=== PATIENT | male | born 1970 | race African-American/Black ===

== ENCOUNTER 2021-03-16 14:39 | Inpatient (IN) | payer MEDICAID, OTHER ==
[~2021-03-16] VITALS: Ht 172.7 cm; Wt 126.1 kg
[2021-03-16] MEDS ORDERED: InsuLIN R (HUMAN) 100 UNITS in SODIUM CHL 0.9% 99 ML IV SCH (14:45)
[2021-03-16] MEDS ORDERED: INSULIN LANTUS (GLARGINE) 1 /0.01ml (100units/ml) SC ONE (14:45)
[2021-03-16] MEDS ORDERED: DEXTROSE (50%) 50ML SYRG IV PRN ×2 (14:45→21:00)
[2021-03-16] MEDS: ACCU-CHEK COMFORT CURVE STRIP VI SCH ×3 (16:30→18:30)
[2021-03-16 16:50] LABS: Basophils # (auto) 0.1 10 ^3/uL (0-0.2); Basophils % (auto) 0.8 % (0.0-2.0); Eosinophils # (auto) 0.2 10 ^3/uL (0-0.8); Eosinophils % (auto) 1.7 % (0.0-7.0); Hematocrit 32.2 % (41.0-53.0); Hemoglobin 10.8 g/dL (13.5-17.5); Lymphocytes # (auto) 3.8 10 ^3/uL (0.4-5.4); Mean Corpuscular Hemoglobin 32.8 pg (28.0-32.0); Mean Corpuscular Hgb Conc. 33.4 g/dL (32.0-36.0); Mean Corpuscular Volume 98.2 fL (80.0-100.0); Monocytes # (auto) 1.3 10 ^3/uL (0-1.3); Monocytes % (auto) 12.3 % (0.0-12.0); Neutrophils % (auto) 48.2 % (37.0-80.0); Platelet Count (auto) 278 10^3/uL (140-450); Red Blood Cells 3.28 10^6/uL (4.5-5.90); Red Cell Distribution Width 13.4 % (11.8-14.3); White Blood Cell 10.3 10^3/uL (4.4-10.8)
[2021-03-16 16:59] LABS: BUN/Creatinine Ratio 9.4; Calcium 8.4 mg/dL (8.5-10.1); Magnesium 3.4 mg/dL (1.6-2.6); Phosphorus 6.4 mg/dL (2.5-4.90); Potassium 4.5 mmol/L (3.5-5.1)
[2021-03-16] MEDS: SODIUM CHLORIDE 0.9% 1,000 ML IV SCH ×2 (18:28→18:29)
[2021-03-16] MEDS ORDERED: SODIUM CHLORIDE 0.9% 1,000 ML IV SCH ×2 (18:45→20:45)
[2021-03-16] MEDS ORDERED: NITROGLYCERIN 0.4 MG SL TAB SL PRN (21:00)
[2021-03-16] MEDS ORDERED: ONDANSETRON HCL 4 MG/2 ML VIAL IV PRN (21:00)
[2021-03-16] MEDS ORDERED: MORPHINE SULF INJ 2 MG/ML SYRINGE 1ML IV PRN ×2 (21:00)
[2021-03-16 21:13] LABS: BUN/Creatinine Ratio 10.1; Calcium 8.2 mg/dL (8.5-10.1); Potassium 4.7 mmol/L (3.5-5.1)
[2021-03-16] MEDS: HEPARIN SODIUM (PORCINE) 5000 UNITS/ML 1ML VIAL SC SCH (22:48)
[2021-03-16 23:47] LABS: Urine Bacteria FEW /hpf (None Seen); Urine Blood 1+ /uL (Negative); Urine Specific Gravity 1.012 (1.001-1.035); Urine WBC <1 /hpf (0 - 3)
[2021-03-17] MEDS: InsuLIN REG 1unit/0.01ml Soln (100units/ml) SC SCH ×5 (00:10→23:40)
[2021-03-17] MEDS: ACCU-CHEK COMFORT CURVE STRIP VI SCH ×5 (00:12→23:39)
[2021-03-17] MEDS: hydrALAZINE HCL 20 MG/ML VL IV PRN ×3 (00:20→19:49)
[2021-03-17] MEDS: HEPARIN SODIUM (PORCINE) 5000 UNITS/ML 1ML VIAL SC SCH ×3 (06:00→23:41)
[2021-03-17 06:44] LABS: Basophils # (auto) 0.1 10 ^3/uL (0-0.2); Basophils % (auto) 0.6 % (0.0-2.0); Eosinophils # (auto) 0.2 10 ^3/uL (0-0.8); Hematocrit 34.7 % (41.0-53.0); Hemoglobin 11.4 g/dL (13.5-17.5); Lymphocytes # (auto) 3.3 10 ^3/uL (0.4-5.4); Lymphocytes % (auto) 33.6 % (10.0-50.0); Mean Corpuscular Hemoglobin 32.1 pg (28.0-32.0); Mean Corpuscular Hgb Conc. 32.8 g/dL (32.0-36.0); Mean Corpuscular Volume 97.9 fL (80.0-100.0); Monocytes # (auto) 0.6 10 ^3/uL (0-1.3); Monocytes % (auto) 5.7 % (0.0-12.0); Neutrophils # (auto) 5.6 10 ^3/uL (1.6-8.6); Neutrophils % (auto) 58.1 % (37.0-80.0); Nucleated Red Blood Cells % 0.1 %; Platelet Count (auto) 260 10^3/uL (140-450); Red Blood Cells 3.54 10^6/uL (4.5-5.90); Red Cell Distribution Width 13.4 % (11.8-14.3); White Blood Cell 9.7 10^3/uL (4.4-10.8)
[2021-03-17 07:01] LABS: Albumin 3.9 g/dL (3.4-5.0); Calcium 8.5 mg/dL (8.5-10.1); Potassium 4.6 mmol/L (3.5-5.1)
[2021-03-17 07:05] LABS: Bilirubin, Total 0.4 mg/dL (0.2-1.0); Total Protein 8.6 g/dL (6.4-8.2)
[2021-03-17] MEDS ORDERED: B-CO-6 PO (09:03)
[2021-03-17] MEDS ORDERED: ACET300T2 (09:03)
[2021-03-17] MEDS ORDERED: SEVE800T20 PO (09:03)
[2021-03-17] MEDS ORDERED: ACET250T3 PO (09:03)
[2021-03-17] MEDS ORDERED: CALC667C PO (09:03)
[2021-03-17] MEDS ORDERED: FURO40TA4 PO (09:03)
[2021-03-17] MEDS ORDERED: PRED1SUS4 (09:03)
[2021-03-17] MEDS ORDERED: TIMO0.5S32 RIGHTEYE (09:03)
[2021-03-17] MEDS ORDERED: AMLO-489 PO (09:03)
[2021-03-17] MEDS ORDERED: INSULIN LANTUS (GLARGINE) 1 /0.01ml (100units/ml) SC SCH (10:00)
[2021-03-17 22:00] VITALS: BP 140/77
[2021-03-18 05:00] VITALS: BP 173/100
[2021-03-18] MEDS: hydrALAZINE HCL 20 MG/ML VL IV PRN (05:14)
[2021-03-18] MEDS: ACCU-CHEK COMFORT CURVE STRIP VI SCH ×2 (05:15→12:27)
[2021-03-18] MEDS: InsuLIN REG 1unit/0.01ml Soln (100units/ml) SC SCH ×2 (05:17→12:33)
[2021-03-18] MEDS: HEPARIN SODIUM (PORCINE) 5000 UNITS/ML 1ML VIAL SC SCH (05:39)
[2021-03-18 07:55] VITALS: BP 201/92
[2021-03-18 09:00] VITALS: BP 201/92
[2021-03-18 11:31] VITALS: BP 151/75
== END 2021-03-18 12:40 | disposition home or self-care (01) | DRG 52 ==
LOC: ER 14:39 → EDBD 14:39 → TELE 21:26 → TELE-WESTW 03-17 20:41
PROVIDERS: ADMIT Hospitalist; ATTEND Hospitalist
PROC: 5A1D70Z Performance of Urinary Filtration, Intermittent, Less than 6 Hours Per Day (ICD-10-PCS; principal; 2021-03-17)
DX: G92 Toxic encephalopathy (principal); J81.1 Chronic pulmonary edema; E11.22 Type 2 diabetes mellitus with diabetic chronic kidney disease; E11.65 Type 2 diabetes mellitus with hyperglycemia; E87.2 Acidosis; I12.0 Hypertensive chronic kidney disease with stage 5 chronic kidney disease or end stage renal disease; N18.6 End stage renal disease; H33.21 Serous retinal detachment, right eye; J98.11 Atelectasis; Z20.822 Contact with and (suspected) exposure to COVID-19; T50.905A Adverse effect of unspecified drugs, medicaments and biological substances, initial encounter; Y92.89 Other specified places as the place of occurrence of the external cause; Z79.4 Long term (current) use of insulin; Z79.899 Other long term (current) drug therapy; Z83.3 Family history of diabetes mellitus; Z99.2 Dependence on renal dialysis; Z88.8 Allergy status to other drugs, medicaments and biological substances
CPT/HCPCS: 36415; 70450; 71045; 80048; 80053; 81001; 82010; 82550; 82962; 83735; 83930; 84100; 85025; 87426; 93005; 96372; 96374; 97163; G0378; J1815